=== PATIENT | female | born 1970 | race Caucasian/White ===

== ENCOUNTER 2020-09-24 17:25 | Emergency (ER) | payer MEDICAID, SELFPAY ==
[2020-09-24 17:40] VITALS: BP 128/80; PULSE 89; RESP 20; TEMP 36.8; O2SAT 95
--- NOTE | 2020-09-24 17:53 | HMH.EDUTC ---
[facility] [place] Disposition Clinical Impression: Exposure to COVID-19 virus Disposition: Home, Self-Care Condition on Discharge: Good Instructions: Preventing the Spread of Coronavirus Discharge Instructions Referrals: PCP,No [Primary Care Provider] - Time of Disposition: 18:00 Medical Decision Making - Alexis Inquiry Pt receiving controlled substance: No Orders (Tests/Meds): ORDERS Category Date Time Status Covid-19 Nasal PCR Sendout [facility] Routine Lab 09/24/20 17:40 Received [facility] [place] HPI - General Stated complaint: covid test Time Seen by Provider: 09/24/20 17:53 - History of Present Illness Provider Complaint: Would like to get COVID19 testing due to possible exposure and a red spot on her chin. No fever. Onset (ago): week(s) (3) Location: face Relieving factors: none Exacerbating factors: none Treatments prior to arrival: none [facility] History - Hepatitis A Screen Attestation statement:: This patient has been screened for Hepatitis A risk factors. I have reviewed the patient's past medical history: Yes ROS Obtained: Yes All systems reviewed & no additional complaints - Constitutional Constitutional: Reports fatigue, Reports malaise - Integumentary/Breasts Skin/Breast: Reports dry skin Physical Exam - General General appearance: alert, in no apparent distress - Head Head exam: atraumatic, normocephalic, normal inspection - Eye Eye exam: Present: normal appearance, PERRL, EOMI - ENT ENT exam: Present: normal exam, normal oropharynx, mucous membranes moist, TM's normal bilaterally, normal external ear exam - Neck Neck exam: Present: normal inspection, full ROM, trachea midline. Absent: meningismus, lymphadenopathy - Chest Chest inspection: Present: normal inspection, symmetric chest wall rise. Absent: tenderness - Respiratory Respiratory exam: Present: normal lung sounds bilaterally. Absent: respiratory distress - Cardiovascular Cardiovascular exam: Present: regular rate, normal rhythm. Absent: JVD - Abdominal Exam Abdominal exam: Present: soft, normal bowel sounds. Absent: distention, tenderness, guarding - Extremities Exam Extremities exam: Present: normal inspection, full ROM, normal capillary refill. Absent: calf tenderness - Back Exam Back exam: Present: normal inspection. Absent: tenderness - Neurological Exam Neurological exam: Present: alert, oriented X3 - Psychiatric Psychiatric exam: Present: normal affect, normal mood - Skin Skin exam: Present: warm, dry, intact, normal color, other (pustules on chin) - Lymphatic Lymphatic Findings: no adenopathy
[2020-09-24 18:05] VITALS: BP 128/80; PULSE 89; RESP 20; TEMP 36.8; O2SAT 95
[2020-09-26 08:25] LABS: Covid-19 Nasal PCR Sendout UK Not Detected
== END 2020-09-24 18:08 | disposition home or self-care (01) ==
PROVIDERS: Emergency Provider Physician Assistant
DX: Z20.828 Contact with and (suspected) exposure to other viral communicable diseases (principal); R53.83 Other fatigue
CPT/HCPCS: 99201; U0003

== ENCOUNTER → 2021-01-25 15:44 | Outpatient (CLI) | payer MEDICAID, SELFPAY ==
[2021-01-25 17:07] LABS: Basophils # 0.1 K/mm3 (0-0.2); Basophils % 0.5 % (0.1-2.0); Eosinophils # 0.2 K/mm3 (0.0-0.4); Eosinophils % 1.2 % (0.1-12.0); Hematocrit 43.2 % (37.0-47.0); Hemoglobin 14.7 g/dL (12.2-16.2); Lymphocytes # 3.1 K/mm3 (0.7-4.5); Lymphocytes % 24.7 % (10-50); Mean Corpuscular Hemoglobin 31.7 pg (27.0-31.2); Mean Corpuscular Volume 93.3 fl (81-99); Monocytes # 0.7 K/mm3 (0.1-1.0); Monocytes % 5.8 % (1.7-9.3); Neutrophils # 8.4 K/mm3 (1.8-7.8); Neutrophils % 67.8 % (37.0-80.0); Platelet Count 332 K/mm3 (142-424); Red Blood Count 4.63 M/mm3 (4.20-5.40); White Blood Count 12.4 K/mm3 (4.8-10.8)
[2021-01-25 17:43] LABS: Thyroid Stimulating Hormone 0.82 uIU/mL (0.465-4.68)
[2021-01-27 15:17] LABS: FSH 4.2 mIU/mL (.); LH 2.8 mIU/mL (.)
== END ==
PROVIDERS: Visit Provider Obstetrics & Gynecology
DX: Z01.419 Encounter for gynecological examination (general) (routine) without abnormal findings (principal); R09.89 Other specified symptoms and signs involving the circulatory and respiratory systems
CPT/HCPCS: 36415; 82670; 83001; 83002; 84443; 85025

== ENCOUNTER 2021-02-05 00:06 | Emergency (ER) | payer MEDICAID, SELFPAY ==
--- NOTE | 2021-02-05 00:11 | ECG_ITS ---
APPROVED REPORT Exam: Resting ECG HR:100 bpm ECG Measurements Heart Rate 100 AXES TN 128 P 79 QRSd 62 QRS 83 QT 336 T 64 QTc 433 Conclusion Normal sinus rhythm Normal ECG Electronically signed by : Oli Holbrook, 02/05/2021 08:43:44
[2021-02-05 00:15] VITALS: BP 126/65; PULSE 98; RESP 18; TEMP 36.8; O2SAT 97; BMI 22.1
[2021-02-05 00:18] VITALS: BMI 22.1
--- NOTE | 2021-02-05 00:18 | XR_ITS ---
PROCEDURE INFORMATION: Exam: XR Chest Exam date and time: 02/05/2021 12:18 AM Age: 50 years old Clinical indication: Prior surgery; Surgery date: 1-6 months; Patient HX: Loop recorder, smoker. Racing heart while laying in bed; Additional info: Heart racing TECHNIQUE: Imaging protocol: XR of the chest. Views: 1 view. COMPARISON: No relevant prior studies available. FINDINGS: Tubes, catheters and devices: Cardiac monitoring device overlying the cardiac silhouette. Lungs: Moderate emphysematous changes of the lung apices. No consolidations, or large pleural effusions. Pleural spaces: See Lungs finding. Heart/Mediastinum: Unremarkable. No cardiomegaly. Bones/joints: Unremarkable. IMPRESSION: No acute findings.
--- NOTE | 2021-02-05 00:35 | HMH.EDARPALP ---
ED Disposition Clinical Impression: Palpitations Disposition: Home, Self-Care Condition on Discharge: Good Instructions: DI for Palpitations Additional Instructions: call pcp and card for follow up Referrals: Andrei Dorantes MD [Primary Care Provider] - - Critical Care Critical Care Time: No Attestation: On 02/05/21, the high probability of a clinically significant, sudden or life threatening deterioration of the following system(s) required my full and direct attention, intervention and personal management. The time I documented below is in addition to time spent performing reported procedures but includes the following listed in this critical care notation. Medical Decision Making - Medical Records Medical records reviewed: Yes: I reviewed the patient's medical records. - Alexis Inquiry Pt receiving controlled substance: No Vital Signs: 02/05/21 00:15 Temperature 98.3 F Temperature Source Oral Pulse Rate [Right] 98 H Respiratory Rate 18 Blood Pressure [Right Arm] 126/65 Blood Pressure Mean [Right Arm] 85 Blood Pressure Source [Right Arm] Automatic Cuff Blood Pressure Position [Right Arm] Supine 02 Sat by Pulse Oximetry 97 Oxygen Delivery Method Room Air - Lab Data Lab results reviewed: Yes: I reviewed the patient's lab results. Lab Results 02/05/21 00:25: Sodium 139, Potassium 4.4, Chloride 107, Carbon Dioxide 22, Anion Gap 14.4, BUN 16, Creatinine 0.80, Estimated Creat Clear 90, Estimated GFR 76, Est GFR ( Amer) 92, Glucose 146 H, Calcium 10.4 H, Troponin I < 0.01, C-Reactive Protein 7.1 H 02/05/21 00:25: Total Bilirubin 0.3, Direct Bilirubin 0.2, Conjugated Bilirubin 0.0, Indirect Bilirubin 0.1, Unconjugated Bilirubin 0.1, AST 27, ALT 16, Alkaline Phosphatase 75, Total Protein 6.0 L, Albumin 3.5 02/05/21 00:40: WBC 18.5 H, RBC 4.63, Hgb 14.8, Hct 42.8, MCV 92.5, MCH 32.0 H, MCHC 34.6, RDW 13.1, Plt Count 290, MPV 7.7, Neut % (Auto) 72.6, Lymph % (Auto) 21.6, Hanson % (Auto) 3.4, Eos % (Auto) 2.0, Baso % (Auto) 0.4, Neut # (Auto) 13.4 H, Lymph # (Auto) 4.0, Hanson # (Auto) 0.6, Eos # (Auto) 0.4, Baso # (Auto) 0.1 Result diagrams: 02/05/21 00:40 02/05/21 00:25 Orders (Tests/Meds): ED MEDICATIONS Generic Name Dose Route Start Last Admin Trade Name Freq PRN Reason Stop Dose Admin Sodium Chloride 1,000 mls @ 999 mls/hr 02/05/21 00:30 02/05/21 00:31 Sod Chlor 0.9% 1000ml Bag IV 02/05/21 01:30 999 mls/hr .Q1H1M RAY Administration ORDERS Category Date Time Status Complete Blood Count Auto Diff Stat Lab 02/05/21 00:40 Results Erythrocyte Sedimentation Rate Stat Lab 02/05/21 00:40 Received Liver Panel Stat Lab 02/05/21 00:25 Results Procalcitonin Stat Lab 02/05/21 00:25 Results Troponin I Q3H Lab 02/05/21 03:30 Ordered Troponin I Q3H Lab 02/05/21 06:30 Ordered - Radiology Data #1 Image(s): Chest Image Reviewed: Yes I reviewed the patient's radiology image Preliminary Findings: Normal/NAD - ECG Data Tracing #1 Normal Sinus Rhythm: Yes Ischemic changes: non-specific ST-T wave changes - RENETTA Score for Non-Stemi Age of Patient: 50-59 years old Heart Rate: 90-109 bpm Systolic Blood Pressure: 120-139 mmhg Serum Creatinine: 0.80-1.19 mg/dl CHF Killip Class: I-No CHF Other Risk Factors: None Non-Stemi Risk Score: 97 Medical Decision Narrative: doing better and she has recorder and stable exam and labs Arrhythmia/Palpitations HPI - General Chief Complaint: Arrhythmia/Palpitations Stated Complaint: Heart Racing one hour;Loop Recorder Time Seen by Provider: 02/05/21 00:25 Mode of Arrival: Ambulatory Source of Information: Patient, Spouse, Medical Record Limitations: No Limitations - History of Present Illness HPI narrative: pt with acute palpitation this evening at rest with hx of same and has loop recorder - no syncope and no other sx at this time MD complaint: palpitations Onset (ago): hour(s) Duration: now resolved Severity:
[2021-02-05 00:39] LABS: Chloride 107 mmol/L (98-107); Potassium 4.4 mmoL/L (3.5-5.1); Sodium 139 mmol/L (136-145)
[2021-02-05 00:42] LABS: Anion Gap 14.4 mEq/L (5-15); Blood Urea Nitrogen 16 mg/dl (7-17); Calcium 10.4 mg/dl (8.4-10.2); Carbon Dioxide 22 mmol/L (22.0-30.0); Creatinine Clearance Estimated 90 mL/min (50-200); Estimated Glomerular Filt Rate 76 ml/min (>60); GFR (African American) 92 ML/MIN (>60); Glucose 146 mg/dl (74-100)
[2021-02-05 00:47] LABS: C-Reactive Protein 7.1 mg/L (0-4)
[2021-02-05 00:50] LABS: Basophils # 0.1 K/mm3 (0-0.2); Basophils % 0.4 % (0.1-2.0); Eosinophils # 0.4 K/mm3 (0.0-0.4); Hematocrit 42.8 % (37.0-47.0); Hemoglobin 14.8 g/dL (12.2-16.2); Lymphocytes % 21.6 % (10-50); Mean Corpuscular HGB Conc 34.6 g/dL (31.8-35.4); Mean Corpuscular Volume 92.5 fl (81-99); Mean Platelet Volume 7.7 fl (7.4-10.4); Monocytes # 0.6 K/mm3 (0.1-1.0); Monocytes % 3.4 % (1.7-9.3); Neutrophils # 13.4 K/mm3 (1.8-7.8); Neutrophils % 72.6 % (37.0-80.0); Platelet Count 290 K/mm3 (142-424); Red Blood Count 4.63 M/mm3 (4.20-5.40); Red Cell Distribution Width 13.1 % (11.5-17.5); White Blood Count 18.5 K/mm3 (4.8-10.8)
[2021-02-05 00:53] LABS: MANUAL DIFFERENTIAL MANUAL DIFFERENTIAL (MANUAL DIFF)
[2021-02-05 00:55] LABS: Alanine Aminotransferase 16 U/L (12-78); Albumin Level 3.5 g/dl (3.5-5.0); Alkaline Phosphatase 75 U/L (38-126); Aspartate Amino Transferase 27 U/L (14-36); Bilirubin,Direct 0.2 mg/dl (0.0-0.4); Bilirubin,Indirect 0.1 mg/dL (0.0-0.9); Bilirubin,Total 0.3 mg/dl (0.2-1.3); Bilirubin,Unconjugated 0.1 mg/dL (0.0-1.1)
[2021-02-05 00:57] LABS: Troponin I < 0.01 ng/ml (0.00-0.034)
[2021-02-05 01:26] VITALS: BP 122/75; PULSE 76; RESP 18; TEMP 36.8; O2SAT 99
[2021-02-05 01:27] LABS: Erythrocyte Sedimentation Rate 25 mm/hr (0-20)
[2021-02-05 01:31] LABS: Lymphocytes % 19 % (10-50); Monocytes % 6 % (2-9); Neutrophils % 75 % (42-76); Platelet Estimate Normal; RBC Morphology Normal; Total Cells Counted 100
[2021-02-05 01:32] LABS: Procalcitonin < 0.030 ng/mL (0.0-2.0)
== END 2021-02-05 01:28 | disposition home or self-care (01) ==
PROVIDERS: Emergency Provider Emergency Medicine; PCP Emergency Medicine
DX: R00.2 Palpitations (principal); R73.9 Hyperglycemia, unspecified; F17.210 Nicotine dependence, cigarettes, uncomplicated
CPT/HCPCS: 71045; 80048; 80076; 84145; 84484; 85007; 85025; 85651; 86140; 93005; 96365; 99282